=== PATIENT | female | born 1965 | race Hispanic/Latino ===

== ENCOUNTER 2018-05-02 14:31 | Observation (INO) | payer MEDICAID ==
[~2018-05-02] VITALS: Ht 167.6 cm; Wt 124.1 kg
[2018-05-02 16:48] LABS: BASOPHILS % (AUTO) 0.3 % (0.0-5.0); EOSINOPHILS % (AUTO) 1.8 % (0.0-8.0); HEMATOCRIT 38.3 % (36-48); LYMPHOCYTES % (AUTO) 28.3 % (21.0-51.0); MEAN CORPUSCULAR HEMOGLOBIN 28.8 pg (27.0-33.0); MEAN CORPUSCULAR HGB CONC 33.5 g/dL (32.0-36.0); NEUTROPHILS % (AUTO) 62.6 % (40.0-77.0); NUCLEATED RED BLOOD CELLS 0.1 % (0.0-0.19); PLATELET COUNT (AUTO) 95 K/uL (130-400); RED BLOOD CELL COUNT(AUTO) 4.45 MIL/uL (4.00-5.50); RED CELL DISTRIBUTION WIDTH 13.7 % (11.0-15.5); WHITE BLOOD COUNT (AUTO) 4.9 K/uL (4.8-10.8)
[2018-05-02 16:58] LABS: CREATININE 0.6 mg/dL (0.5-1.5); POTASSIUM 3.8 mmol/L (3.5-5.1)
[2018-05-02 17:03] LABS: ALBUMIN 3.3 g/dL (3.5-5.0); BILIRUBIN,TOTAL 0.7 mg/dL (0.2-1.0); TOTAL PROTEIN, SERUM 7.5 g/dL (6.0-8.3)
[2018-05-02] MEDS ORDERED: DEXTROSE 50%-WATER 50 ML DISP.SYRIN IV PRN (18:30)
[2018-05-02] MEDS ORDERED: GLUCAGON 1MG KIT 1 MG ML IM PRN (18:30)
[2018-05-02] MEDS ORDERED: SODIUM CHLORIDE 0.9% 1000ML 1,000 ML IV SCH (18:30)
[2018-05-02] MEDS ORDERED: ACETAMINOPHEN 325 MG TAB PO PRN (19:00)
[2018-05-02] MEDS ORDERED: ONDANSETRON HCL 4 MG/2 ML VIAL IV PRN (19:00)
[2018-05-02] MEDS ORDERED: IBUPROFEN 400 MG TABLET PO PRN (19:15)
[2018-05-02] MEDS ORDERED: IBUPROFEN 200 MG TAB PO PRN (19:15)
[2018-05-02 19:16] LABS: HEMOGLOBIN A1C 8.8 % (4.0-6.0)
[2018-05-02 19:21] LABS: CREATINE KINASE, TOTAL 138 U/L (21-232); MYOGLOBIN 48 ng/mL (10-92); TROPONIN I < 0.04 ng/mL (0.00-0.06)
--- NOTE | 2018-05-02 20:44 | NUR ---
ROOM ASSIGNED PT ASSIGNED TO ROOM 314, SPOKE WITH NOEMY SINCLAIR ACCEPTING PT. NOEMY UNAVAILABLE
--- NOTE | 2018-05-02 20:46 | NUR ---
REPORT EPORT CALLED AND GIVEN TO NOEMY MARTINEZ
[2018-05-02] MEDS: INSULIN HUMULIN R 100 UNIT/ML 3ML SQ SCH (21:00)
--- NOTE | 2018-05-02 21:00 | NUR ---
TRANSFERRED PT TRANSFERRED TO ROOM 314 VIA STRETCHER, TERE, WITH SANDWICH AND JUICE
[2018-05-02 21:45] VITALS: BP_SYST 121; BP_SYST 127; BP_SYST 135; BP_DIAS 64; BP_DIAS 73
[2018-05-03] VITALS: BP 119/50
[2018-05-03 01:33] LABS: APPEARANCE,URINE Clear (CLEAR); BILIRUBIN,URINE Negative (NEGATIVE); COLOR,URINE Dark Yellow (YELLOW); GLUCOSE, URINE (UA) >=1000 mg/dL (NEGATIVE); KETONES,URINE Trace mg/dL (NEGATIVE); LEUKOCYTE ESTERASE ,URINE Small (NEGATIVE); NITRATE,URINE Negative (NEGATIVE); OCCULT BLOOD,URINE Small (NEGATIVE); PH,URINE 5.5 (5.0-8.0); PROTEIN,URINE Negative (NEGATIVE)
[2018-05-03 01:41] LABS: AMPHET/METH SCREEN,URINE NEGATIVE (NEGATIVE); BARBITURATE SCREEN, URINE NEGATIVE (NEGATIVE); BENZODIAZEPINES SCREEN,URINE NEGATIVE (NEGATIVE); CANNABINOID SCREEN,URINE NEGATIVE (NEGATIVE); COCAINE SCREEN,URINE NEGATIVE (NEGATIVE); OPIATE SCREEN,URINE NEGATIVE (NEGATIVE); PHENCYCLIDINE SCREEN,URINE NEGATIVE (NEGATIVE)
[2018-05-03 01:54] LABS: BACTERIA,URINE Few /HPF (None Seen); MUCUS,URINE Moderate LPF (None Seen); SQUAMOUS EPITHELIAL CELL,UR Moderate /HPF (0-2)
[2018-05-03 01:55] LABS: AMORPHOUS SEDIMENT,UR Moderate /LPF (None Seen)
[2018-05-03 04:00] VITALS: BP_SYST 129; BP_SYST 138; BP_SYST 141; BP_DIAS 67; BP_DIAS 73; BP_DIAS 78
[2018-05-03] MEDS ORDERED: METH2.5T6 PO (05:08)
[2018-05-03] MEDS ORDERED: ERGO500014 PO (05:08)
[2018-05-03] MEDS ORDERED: TRAM50TA4 PO (05:08)
[2018-05-03] MEDS ORDERED: LEVO125T11 PO (05:08)
[2018-05-03] MEDS ORDERED: HYDR200T4 PO (05:08)
[2018-05-03] MEDS ORDERED: MELO-106 PO (05:08)
[2018-05-03] MEDS ORDERED: IBUP-2077 PO (05:08)
[2018-05-03] MEDS ORDERED: ESOM40CA PO (05:08)
[2018-05-03] MEDS ORDERED: METF500S7 PO (05:08)
[2018-05-03 06:12] LABS: BASOPHILS % (AUTO) 0.2 % (0.0-5.0); HEMATOCRIT 36.3 % (36-48); LYMPHOCYTES % (AUTO) 28.8 % (21.0-51.0); MEAN CORPUSCULAR HGB CONC 33.2 g/dL (32.0-36.0); MEAN CORPUSCULAR VOLUME 87.1 fL (79-99); MONOCYTES % (AUTO) 6.7 % (3.0-13.0); NEUTROPHILS % (AUTO) 62.3 % (40.0-77.0); NUCLEATED RED BLOOD CELLS 0.1 % (0.0-0.19); PLATELET COUNT (AUTO) 93 K/uL (130-400); RED BLOOD CELL COUNT(AUTO) 4.17 MIL/uL (4.00-5.50); RED CELL DISTRIBUTION WIDTH 13.6 % (11.0-15.5); WHITE BLOOD COUNT (AUTO) 4.4 K/uL (4.8-10.8)
[2018-05-03] MEDS: INSULIN HUMULIN R 100 UNIT/ML 3ML SQ SCH ×2 (06:17→13:19)
[2018-05-03 06:38] LABS: BILIRUBIN,TOTAL 0.7 mg/dL (0.2-1.0); CREATININE 0.6 mg/dL (0.5-1.5); MAGNESIUM 1.4 mg/dL (1.80-2.40); POTASSIUM 3.7 mmol/L (3.5-5.1); THYROID STIMULATING HORMONE 1.65 uIU/mL (0.36-3.74); TOTAL PROTEIN, SERUM 6.7 g/dL (6.0-8.3)
[2018-05-03 08:00] VITALS: BP 124/72
[2018-05-03] MEDS ORDERED: PANTOPRAZOLE SODIUM 40 MG TABLET.DR PO SCH (09:00)
[2018-05-03 12:03] VITALS: BP 124/77
[2018-05-03] MEDS ORDERED: LIDOCAINE 5% TOPICAL PATCH TP SCH (13:15)
[2018-05-03] MEDS ORDERED: LIDOP TP (15:44)
--- NOTE | 2018-05-03 16:00 | NUR ---
PT AAOX3 , C/P PAIN WHILE TRYING TO AMBULATE. PT ABLE TO DRESS WITH MODERATE ASSISTANCE. STATES PAIN PATCH TO RT SIDE HAS HELPED HER PAIN. INSTRUCTED PT ON IMPORTANCE OF WALKING WHILE AT HOME, MOVING FROM THE BED TO A CHAIR TOLERATED. POST CARE INSTRUCTIONS AND PRESCRIPTION GIVEN TO PT AND , BOTH VERBALIZED UNDERSTANDING.
== END 2018-05-03 17:05 | disposition home or self-care (01) ==
LOC: EDH 14:31 → EDHIP 14:32 → 3CH 20:21
PROVIDERS: ADMIT Hospitalist; ATTEND Hospitalist
DX: S22.31XA Fracture of one rib, right side, initial encounter for closed fracture (principal); D69.6 Thrombocytopenia, unspecified; E66.01 Morbid (severe) obesity due to excess calories; E03.9 Hypothyroidism, unspecified; E11.9 Type 2 diabetes mellitus without complications; I10 Essential (primary) hypertension; M06.9 Rheumatoid arthritis, unspecified; W01.0XXA Fall on same level from slipping, tripping and stumbling without subsequent striking against object, initial encounter; Z82.49 Family history of ischemic heart disease and other diseases of the circulatory system; Z68.41 Body mass index [BMI] 40.0-44.9, adult; Z96.643 Presence of artificial hip joint, bilateral; R55 Syncope and collapse; Z79.899 Other long term (current) drug therapy
CPT/HCPCS: 36415 ×2; 70450; 71111; 72072; 73502; 80053 ×2; 80305; 81001; 82550; 82948 ×3; 83036; 83735; 83874; 84443; 84484; 85025 ×2; 93005 ×2; 93880; 96372; 99284; G0378 ×27; J1815 ×2; J7030

== ENCOUNTER 2018-05-18 22:06 | Emergency (ER) | payer MEDICAID ==
[~2018-05-18 22:06] MED LIST: ERGO500014 PO; ESOM40CA PO; HYDR200T4 PO; IBUP-2077 PO; LEVO125T11 PO; LIDOP TP; MELO-106 PO; METF500S7 PO; METH2.5T6 PO; TRAM50TA4 PO
[2018-05-18] MEDS ORDERED: ONDANSETRON ODT 4 MG TAB ONE (23:18)
[2018-05-18] MEDS ORDERED: MORPHINE SULFATE 8 MG/ML VIAL ONE (23:19)
== END 2018-05-18 23:57 | disposition home or self-care (01) ==
LOC: EDH 22:06
DX: S42.491A Other displaced fracture of lower end of right humerus, initial encounter for closed fracture (principal); E11.9 Type 2 diabetes mellitus without complications; M19.90 Unspecified osteoarthritis, unspecified site; E07.9 Disorder of thyroid, unspecified; Z96.649 Presence of unspecified artificial hip joint; Z98.890 Other specified postprocedural states; X50.9XXA Other and unspecified overexertion or strenuous movements or postures, initial encounter; Y93.89 Activity, other specified; Y92.89 Other specified places as the place of occurrence of the external cause; Y99.8 Other external cause status
CPT/HCPCS: 29105; 73070; 96372; 99283; J2270